=== PATIENT | female | born 1960 | race Caucasian/White ===

== ENCOUNTER 2017-10-19 13:36 | Emergency (ER) | payer OTHER ==
[2017-10-19 13:43] VITALS: BP 120/94; PULSE 81; RESP 16; TEMP 97.7; O2SAT 97
--- NOTE | 2017-10-19 15:09 | EDPHY ---
H & P Time Seen by Provider: 10/19/17 15:01 HPI/ROS: CHIEF COMPLAINT: Right wrist pain HISTORY OF PRESENT ILLNESS: 57-year-old female with prior history of right wrist fracture 1 year ago, visiting from [place], was hiking today, slipped on the ice landed on outstretched right hand complaining of right distal radius pain. No deformity. No angulation, no paresthesia. PHYSICAL EXAM (Prior to examination, patient consented to physical exam, hands were washed and my usual and customary physical exam procedures followed) 1) GENERAL: Well-developed, well-nourished, alert and oriented. Appears to be in no acute distress. 2) HEAD: Normocephalic 3) HEENT: Pupils equal, round, reactive to light bilaterally. 4) LUNGS: Breathing comfortably. 5) MUSCULOSKELETAL: Mild tenderness to palpation distal radius. No deformity no angulation Soft compartments. Normal coloration. 6) SKIN: Intact 7) VASCULAR: pulses and cap refill present are brisk 8) NEUROLOGIC: Radial, ulnar, median nerve function intact with no deficits appreciated on exam DIFFERENTIAL DIAGNOSIS: in no particular order including but not limited to fracture, sprain, compartment syndrome Procedure: Splint A Velcro volar splint was applied by ER retail merchandiser technician. After application of the splint I returned and re-examined the patient. The splint was adequately immobilizing the joint and distal to the splint the patient's circulation and sensation were intact. Patient shows no signs of compartment syndrome. Was given orthopedic precautions. Smoking Status: Never smoked Constitutional: Initial Vital Signs Temperature (C) 36.5 C 10/19/17 13:40 Heart Rate 81 10/19/17 13:40 Respiratory Rate 16 10/19/17 13:40 Blood Pressure 120/94 H 10/19/17 13:40 O2 Sat (%) 97 10/19/17 13:40 O2 Delivery Mode Room Air Allergies/Adverse Reactions: Sulfa (Sulfonamide Antibiotics) Allergy (Verified 10/19/17 13:39) Home Medications: Medication Instructions Recorded Boniva 10/19/17 Levothyroxine 10/19/17 Mesalamine 10/19/17 MDM/Departure - MDM Imaging Results: Imaging Impressions Wrist X-Ray 10/19/17 13:44 Impression: No acute osseous abnormalities. ED Course/Re-evaluation: Plan will be discharge home, given copies of x-rays recommend she follow up with her orthopedic surgeon in [place] when she returns in 2 days. No signs of compartment syndrome. Care of patient under supervision of secondary supervising physician Dr Jerrell Matamoros. - Depart Disposition: Home, Routine, Self-Care Clinical Impression: Right wrist pain Fall from slipping on ice Qualifiers: Encounter type: initial encounter Qualified Code(s): W00.9XXA - Unspecified fall due to ice and snow, initial encounter Condition: Good Instructions: Wrist Injury (ED) Additional Instructions: Return to the ER immediately if you experience discoloration, have worsening pain, numbness, tingling, or any other symptoms that concern you. If you received x-rays in the emergency department today, be advised, that ligamentous , tendon, muscular, and other non-bony injury cannot be fully ruled out. Try to keep your affected extremity elevated above the level of your chest, and keep cold packs on the affected area, for the next 48 hours. Referrals: Follow-up, with your orthopedic surgeon in 5-7 days [Other] - As per Instructions Jaron Laird MD [Medical Doctor] - 5-7 days, call for appt. (Dr. Jaron Laird is a [facility] orthopedic surgeon)
== END 2017-10-19 16:05 | disposition home or self-care (01) ==
DX: S69.91XA Unspecified injury of right wrist, hand and finger(s), initial encounter (principal); W00.9XXA Unspecified fall due to ice and snow, initial encounter; Y99.8 Other external cause status; Y93.01 Activity, walking, marching and hiking
CPT/HCPCS: L3908